=== PATIENT | female | born 1950 | race Caucasian/White ===

== ENCOUNTER 2020-03-07 13:10 | Emergency (ER) | payer MEDICARE ==
--- NOTE | 2020-03-07 15:27 | EDM.PDOC ---
ED HPI GENERAL MEDICAL PROBLEM - General Chief Complaint: Trauma Stated Complaint: [place] in left thumb Time Seen by Provider: 03/07/20 13:10 Source of Information: Reports: Patient History Limitations: Reports: No Limitations - History of Present Illness INITIAL COMMENTS - FREE TEXT/NARRATIVE: Patient caught a walleye that shook when she took out hooks and hook became embedded in the fingerpad of left thumb just prior to coming to the ED Onset: Today Duration: Minutes: (30 minutes) Location: Reports: Other (Left thumb) ED ROS GENERAL - Review of Systems Review Of Systems: See Below Constitutional: Reports: No Symptoms HEENT: Reports: No Symptoms Respiratory: Reports: No Symptoms Cardiovascular: Reports: No Symptoms GI/Abdominal: Reports: No Symptoms ED EXAM, GENERAL - Physical Exam Exam: See Below Exam Limited By: No Limitations General Appearance: Alert, WD/WN, No Apparent Distress Extremities: Other (#6 treble hook in left thumb pad. NO active bleeding) ED GENERAL MEDICAL PROCEDURES - Additional/Other Procedure(s) Other (Free Text) Procedure(s): Thumb anesthetized with 2% lidocaine digital block using 3 cc of lidocaine After allowing med to take affect the hook was advanced thru and tiara removed and then hook was retracted. Patient tolerted procedure well and thumb was bandaged after cleansing of wound. Adacel IM given to prevent Tetanus. Departure - Departure Time of Disposition: 13:30 Disposition: Home, Self-Care 01 Condition: Good Clinical Impression: Fish hook injury of thumb - Discharge Information *PRESCRIPTION DRUG MONITORING PROGRAM REVIEWED*: Not Applicable Instructions: Hand or Foot Foreign Body, Adult Referrals: PCP,None [Primary Care Provider] - Forms: ED Department Discharge Additional Instructions: watch for signs of infection. Increased swelling, redness, drainage. Follow up with primary clinic MD if infection.
[2020-03-07] MEDS: Diphtheria,Pertussis(Acell),Tetanus Vaccine 0.5 ML SDV inactive IM ONE (15:41)
== END 2020-03-07 13:30 | disposition home or self-care (01) ==
LOC: LB.ED 13:10
DX: S60.352A Superficial foreign body of left thumb, initial encounter (principal); Z23 Encounter for immunization; W45.8XXA Other foreign body or object entering through skin, initial encounter
CPT/HCPCS: 64450; 90471; 90715; 99282; 99283-25

== ENCOUNTER 2022-04-28 10:25 | Day surgery (SDC) | payer MEDICARE ==
[~2022-04-28 10:25] MED LIST: Metoclopramide 10 MG/2 ML SDV IV PRN
[2022-04-28] MEDS: Sodium Chloride 0.9% 1,000 ML IV SCH (11:44)
[2022-04-28] MEDS ORDERED: Propofol 1,000 MG/100 ML SDV ONE (13:15)
== END 2022-04-28 14:11 | disposition home or self-care (01) ==
LOC: LB.SDS 10:25
PROVIDERS: ATTEND Surgery
DX: K52.9 Noninfective gastroenteritis and colitis, unspecified (principal); I48.91 Unspecified atrial fibrillation; E78.5 Hyperlipidemia, unspecified; I10 Essential (primary) hypertension; Z80.0 Family history of malignant neoplasm of digestive organs; Z88.2 Allergy status to sulfonamides
CPT/HCPCS: J2704; J7030